=== PATIENT | male | born 1995 | race Caucasian/White ===

== ENCOUNTER 2020-05-29 12:21 | Outpatient (REF) | payer OTHER, SELFPAY | END 2020-05-29 12:22 | disposition home or self-care (01) | LOC: HO.LAB 12:21 | PROVIDERS: Visit Provider Internal Medicine | DX: Z20.828 Contact with and (suspected) exposure to other viral communicable diseases (principal) | CPT/HCPCS: C9803; U0003 ==

== ENCOUNTER 2020-07-14 14:38 | Outpatient (REF) | payer OTHER, SELFPAY | END 2020-07-14 14:39 | disposition home or self-care (01) | LOC: HO.LAB 14:38 | PROVIDERS: Visit Provider Internal Medicine | DX: Z20.822 Contact with and (suspected) exposure to COVID-19 (principal) | CPT/HCPCS: 36415; C9803; U0003; U0005 ==